=== PATIENT | female | born 1995 | race Caucasian/White ===

== ENCOUNTER 2018-06-23 09:19 | Emergency (ER) | payer SELFPAY ==
[~2018-06-23] VITALS: Ht 154.9 cm; Wt 65.9 kg
[2018-06-23 09:26] VITALS: Ht 154.9 cm; Wt 65.9 kg
[2018-06-23] MEDS ORDERED: MEDROL DOSE PACK4 MG PO (11:21)
== END 2018-06-23 11:45 | disposition home or self-care (01) ==
LOC: D.ER 09:19
DX: S50.12XA Contusion of left forearm, initial encounter (principal); W23.0XXA Caught, crushed, jammed, or pinched between moving objects, initial encounter; Y93.89 Activity, other specified; Y92.89 Other specified places as the place of occurrence of the external cause

== ENCOUNTER 2018-08-31 08:55 | Emergency (ER) | payer SELFPAY ==
[~2018-08-31 08:55] MED LIST: MEDROL DOSE PACK4 MG PO
[2018-08-31] MEDS ORDERED: VOLTAREN75 MG PO (10:32)
== END 2018-08-31 10:50 | disposition home or self-care (01) ==
LOC: D.ER 08:55
DX: M25.561 Pain in right knee (principal)